=== PATIENT | male | born 1940 | race Caucasian/White ===

== ENCOUNTER 2021-04-30 10:55 | Inpatient (IN) | payer OTHER ==
[~2021-04-30] VITALS: Ht 170.2 cm; Wt 81.2 kg
[~2021-04-30 10:55] MED LIST: ALLOPURINOL 30300 M2 PO; ATENOLOL 25MG T25 MG PG; CHLORTHALIDONE25 MG PO; CIPROFLOXACIN500 M1 PO; ECOTRIN81 MG PO; FELODIPINE ER10 MG PO; FUROSEMIDE 20 M20 M1 PO; HYDROXYCHLOROQ200 M1 PO; LISINOPRIL10 MG PO; LISINOPRIL20 MG PO; LOVAZA1000 MG PO; MOBIC7.5 MG PO; OMEPRAZOLE 20 M20 MG PO; PLAQUENIL200 MG PO; TRAMADOL 50 MG50 MG PO; VERAPAMIL HCL180 M1 PO
[2021-04-30 10:58] VITALS: BP 202/83
[2021-04-30 12:14] LABS: ABSOLUTE NEUTROPHILS 6.5 thou/uL (1.4-8.2); EOSINOPHILS 6.5 % (0.0-3.0); HEMATOCRIT 41.6 % (42.0-52.0); HEMOGLOBIN 14.3 gm/dL (14.0-18.0); LYMPHOCYTES 19.4 % (24.0-44.0); MCH 29.2 pg (26.0-34.0); MCHC 34.3 g/dL (28.0-37.0); MCV 85.1 fL (80.0-100.0); MONOCYTES 5.7 % (1.0-8.0); PLATELET COUNT 215 thou/uL (150-400); POLYS 67.4 % (36.0-66.0); RBC 4.89 mil/uL (4.50-6.00); RDW 15.6 % (10.5-14.5); WBC 9.7 thou/uL (4.0-11.0)
[2021-04-30 12:23] LABS: ANION GAP 8 mmol/L (7-16); BUN 27 mg/dL (7-18); CALCIUM 8.8 mg/dL (8.5-10.1); CHLORIDE 102 mmol/L (98-107); CO2 27 mmol/L (21-32); CREATININE 1.6 mg/dL (0.7-1.3); GLUCOSE 152 mg/dL (74-106); POTASSIUM 3.9 mmol/L (3.5-5.1); SODIUM 137 mmol/L (136-145)
[2021-04-30 12:33] LABS: ALBUMIN 3.9 g/dL (3.4-5.0); SGOT 26 U/L (15-37); SGPT 28 U/L (30-65); TOTAL BILIRUBIN 0.6 mg/dL (0.2-1.0); TOTAL PROTEIN 7.1 g/dL (6.4-8.2); TROPONIN-I <0.06 ng/mL (<0.06)
[2021-04-30 15:23] VITALS: BP 137/61
[2021-04-30 15:38] VITALS: BP 136/57
[2021-04-30 15:55] VITALS: BP 149/72
[2021-04-30] MEDS ORDERED: MELOXICAM15 MG PO ×4 (16:43→16:48)
--- NOTE | 2021-04-30 18:16 | NUR ---
PT ADMITTED FROM ER FOR CHEST PAIN AND SOB, PT IS A&OX4, PT HAS MEDICATIONS AT ER, PT 'S CHEST PAIN AND SOB HAVE IMPROVED, PT 'S VS ARE STABLE, PT'S STAYS AT PT'S BEDSIDE NOW. PT'S ADMITTED ASSESSMENT HAS DONE.
--- NOTE | 2021-04-30 18:50 | EKG ---
[address] [address] ELECTROCARDIOGRAM REPORT Name: MARIA DEL ROSARIO ALBARRAN Room #: 352-P ADM IN M.R.#: [id number] Admission: 04/30/21 Attend Phys: Angel Demarco MD Discharge: Date of : 42 Report #: [id number] [facility] ED Test Date: 2021-04-30 Test Time: 11:57:40 Pat Name: MARIA DEL ROSARIO ALBARRAN Department: Room: [facility] Gender: M [employer]: RODNEY : 1940 Requested By: Yelitza Baker Order Number: [id number] MD: Kyle Rizo Measurements Intervals [place] Rate: 56 P: 35 NM: 166 QRS: -22 QRSD: 121 T: 26 QT: 451 QTc: 436 Interpretive Statements Sinus rhythm Atrial premature complex Nonspecific intraventricular conduction delay Compared to ECG 10/23/2008 11:21:44 Atrial premature complex(es) now present Intraventricular conduction delay now present T-wave abnormality no longer present Electronically Signed On 04-30-2021 18:50:41 CDT by Kyle Rizo [email or web address] <ELECTRONICALLY SIGNED> By: Kyle Rizo MD, [facility] 04/30/21 1850 1157 1157 Kyle Rizo MD, [facility] /EPI
[2021-04-30 21:03] VITALS: BP 198/95
--- NOTE | 2021-05-01 06:28 | NUR ---
PATIENT REMAIN A/OX4. DENIES ANY CHEST PAIN, DENIES SOA, PAIN. AFEBRILE. VSS. ON RA. DENIES NEEDS. WANTS TO GO HOME THIS AM.
[2021-05-01 07:32] VITALS: BP 197/94
[2021-05-01 11:05] VITALS: BP 197/80
--- NOTE | 2021-05-01 12:18 | NUR ---
ORDERS RECEIVED FOR PT EVAL AND TREAT. Pt HAS BEEN UP AD EDIS WHICH RN CONFIRMED. STILL HAS ELEVATED BP AND Pt REPORTED HE HAS A STRICT BP MED REGIMEN AT HOME THAT HE WORKED OUT WITH HIS DOCTOR OVER A LONG PERIOD OF TIME. WANTS TO GET HOME TO GET BACK ON THAT REGIMEN. DECLINING ACUTE PT NEEDS AT THIS TIME. ACUTE PT TO SIGN OFF. CONFIRMED THAT Pt HAS HAD NO DIFFICULTY W/ MOBILITY.
[2021-05-01] MEDS ORDERED: PREDNISONE 20 M20 M1 PO (13:41)
[2021-05-01] MEDS ORDERED: CLONIDINE HCL0.3 M3 PO (13:41)
[2021-05-01] MEDS ORDERED: ATENOLOL 25 MG25 M1 PO (13:41)
[2021-05-01 13:51] VITALS: BP 179/77
[2021-05-01 15:28] VITALS: BP 185/80
--- NOTE | 2021-05-01 16:48 | NUR ---
RN ASSUMED PT'S CARE AT 0700AM, PT IS A&OX4, PT'S CHEST PAIN AND SOB HAVE IMPROVED,RN RECEIVED ORDER TO DC PT TO HOME, RN HAS CALLED HOSPITAL DR TO REPORT PT'S BP STLL HIGH AT 179-189/70-90MMHG, AFTER PT HAS HIS SCHEDULE AND PRN BP MEDICATIONS, BUT PT DENIES CHEST PAIN AND SOB, HOSPITAL DR ASKS RN TO CALL CARDIOLOGY DR AND HOLD DC TO HOME NOW. WE ARE CONTINUING PT'S VS AND WAIT FOR DR TO CALL BACK.
--- NOTE | 2021-05-01 19:26 | NUR ---
RN RECEIVED ORDER FROM CARDIOLOGY DR , HOLD DC TODAY, INCREASE BP MEDICATIOND DOSE, DO STRESS TEST TOMORROW. PT AND PT'S UNDERSAND WELL, RN HAS REPORTED TO NEXT SHIFT TO KEEP EYE ON PT. RN HAS NOTIFIED HOSPITAL DR ABOUT HOLD DC TODAY.
[2021-05-01 19:35] VITALS: BP 165/63
[2021-05-01 23:55] VITALS: BP 155/60
[2021-05-02] VITALS (7 sets, daily range): BP systolic 152–179; BP diastolic 83–87
--- NOTE | 2021-05-02 04:28 | NUR ---
PT MAKING PROGRESS TOWARDS GOALS. ON ROOM AIR THROUGHOUT THE NIGHT. UP TO TOILET W/O ASSISTANCE. DENIED ANY KAREN OR CHEST PAIN OVERNIGHT. NPO FOR STRESS TEST THIS AM.
--- NOTE | 2021-05-02 08:20 | NUR ---
PER NM, PT IS TO HAVE LIGHT BREAKFAST, NO CAFFEINE. TEST WILL NOT BE UNTIL THIS AFTERNOON. NPO FOR LUNCH. OK FOR MEDS EXCEPT NITRO, METOPROLOL.
[2021-05-02 09:41] LABS: ANION GAP 8 mmol/L (7-16); BUN 32 mg/dL (7-18); CALCIUM 9.7 mg/dL (8.5-10.1); CHLORIDE 99 mmol/L (98-107); CHOLESTEROL 261 mg/dL (<200); CO2 31 mmol/L (21-32); CREATININE 1.4 mg/dL (0.7-1.3); GLUCOSE 117 mg/dL (74-106); HDL CHOLESTEROL 32 mg/dL (>40); LDL CHOLESTEROL 167 mg/dL (<100); POTASSIUM 4.1 mmol/L (3.5-5.1); SODIUM 138 mmol/L (136-145); TC:HDL 8.2 Ratio (Not establshd); TRIGLYCERIDE 313 mg/dL (<150); TROPONIN-I <0.06 ng/mL (<0.06); VLDL 63 mg/dL (<40)
--- NOTE | 2021-05-02 13:10 | 2DMMODE ---
[facility] [place] [address] 2 D/M-MODE ECHOCARDIOGRAM Name: DEIONMARIA DEL ROSARIO E Room #: 352-P ADM IN M.R.#: [id number] Admission: 04/30/21 Attend Phys: Angel Demarco MD Discharge: Date of : 42 Report #: [id number] THIS REPORT FOR: cc: Hugo Mayberry MD, Logan F. MD Santiago, Patrick MD [facility] ~ APPROVED REPORT Study performed: 05/02/2021 12:12:40 EXAM: Comprehensive 2D, Doppler, and color-flow Echocardiogram Patient Location: Bedside Room #: [facility] Status: routine BSA: 1.93 HR: 62 bpm BP: 179/83 mmHg Rhythm: NSR Other Information Study Quality: Good Indications Chest Pain Hypertension/HDD 2D Dimensions RVDd: 41.35 mm IVSd: 11.24 (7-11mm) LVOT Diam: 19.52 (18-24mm) LVDd: 49.74 mm PWd: 10.65 (7-11mm) Ascending Ao: 30.94 (22-36mm) LVDs: 34.38 (25-40mm) Left Atrium: 43.94 (27-40mm) Aortic Root: 36.56 mm IVC: 16.00 mm Volumes Left Atrial Volume (Systole) Single Plane 4CH: 54.41 mL Single Plane 2CH: 39.46 mL LA ESV Index: 26.00 mL/m2 Aortic Valve AoV Peak Ez.: 2.30 m/s AO Peak Gr.: 21.15 mmHg LVOT Max P.08 mmHg AO Mean Gr.: 11.35 mmHg LVOT Mean P.61 mmHg [facility] [address] [place] [address] 2 D/M-MODE ECHOCARDIOGRAM Name: MARIA DEL ROSARIO ALBARRAN Room #: 352-P [facility]#: [id number] Admission: 04/30/21 Attend Phys: Angel Demarco MD Discharge: Date of : 42 Report #: [id number] AO V2 Mean: 1.57 m/s LVOT Max V: 0.90 m/s AO V2 VTI: 53.77 cm LVOT Mean V: 0.58 m/s TRI (VTI): 1.32 cm2 LVOT V1 VTI: 23.72 cm TRI Vmax: 1.18 cm2 SV (LVOT): 70.98 mL Mitral Valve E/A Ratio: 1.3 MV Decel. Time: 279.91 ms MV E Max Ez.: 0.97 m/s MV A Ez.: 0.77 m/s MV PHT: 81.17 ms IVRT: 110.73 ms Pulmonary Valve PV Peak Ez.: 0.95 m/s PV Peak Gr.: 3.61 mmHg Pulmonary Vein P Vein S: 0.63 m/s P Vein A: 0.24 m/s P Vein D: 0.30 m/s P Vein A Dur.: 106.1 msec P Vein S/D Ratio: 2.10 Left Ventricle The left ventricle is normal size. There is normal LV segmental wall motion. There is normal left ventricular wall thickness. Left ventricular systolic function is normal. The left ventricular ejection fraction is within the normal range. LVEF is 60-65%. Grade II - pseudonormal filling dynamics. Right Ventricle The right ventricle is normal size. The right ventricular systolic function is normal. Atria The left atrium size is normal. The right atrium size is normal. Aortic Valve The aortic valve is normal in structure. Aortic valve is calcified. No aortic regurgitation is present. Mild aortic stenosis. Mitral Valve The mitral valve is normal in structure. There is no mitral valve regurgitation noted. No evidence of mitral valve stenosis. Tricuspid Valve [facility] [address] [place] [address] 2 D/M-MODE ECHOCARDIOGRAM Name: MARIA DEL ROSARIO ALBARRAN Room #: 352-P [facility].#: [id number] Admission: 04/30/21 Attend Phys: Angel Demarco MD Discharge: Date of : 42 Report #: [id number] The tricuspid valve is normal in structure. There is no tricuspid valve regurgitation noted. Pulmonic Valve The pulmonary valve is normal in structure. There is no pulmonic valvular regurgitation. Great Vessels The aortic root is normal in size. IVC is normal in size and collapses >50% with inspiration. Pericardium There is no pericardial effusion. <Conclusion> Normal left ventricular size/wall thickness Ejection fraction 60-65% Normal right ventricular size/function Mild aortic valve stenosis, mean gradient of 11 mmHg Normal mitral valve structure and function No tricuspid valve insufficiency No pericardial effusion Normal aortic root size. <ELECTRONICALLY SIGNED> By: Kyle Rizo MD, FACC 05/02/21 1310 131 09 Kyle Rizo MD, FACC /INF
--- NOTE | 2021-05-02 16:32 | NUR ---
SW received consult for discharge planning. Spoke with nursing and attending physician. Pt was admitted from home due to chest pain. Pt had stress test today, which was negative. Pt discharged home earlier this afternoon. No discharge needs identified. SW is available to assist should needs arise.
== END 2021-05-02 16:15 | disposition home or self-care (01) | DRG 305 ==
LOC: ER 10:55 → EROBS 14:16 → 3W 14:16
PROVIDERS: Emergency Medicine; Nurse Practitioner; ADMIT Internal Medicine; ATTEND Internal Medicine
DX: I16.0 Hypertensive urgency (principal); I20.8 Other forms of angina pectoris; E78.5 Hyperlipidemia, unspecified; I10 Essential (primary) hypertension; S61.451A Open bite of right hand, initial encounter; W57.XXXA Bitten or stung by nonvenomous insect and other nonvenomous arthropods, initial encounter; M10.9 Gout, unspecified; M06.9 Rheumatoid arthritis, unspecified; Z90.49 Acquired absence of other specified parts of digestive tract; Z79.82 Long term (current) use of aspirin; Z79.899 Other long term (current) drug therapy; Z88.8 Allergy status to other drugs, medicaments and biological substances; Y93.89 Activity, other specified; Y92.89 Other specified places as the place of occurrence of the external cause; Y99.8 Other external cause status
CPT/HCPCS: 10879

== ENCOUNTER → 2021-05-10 | Outpatient (CLI) | payer OTHER ==
[~2021-05-10] MED LIST changes: +ATENOLOL 25 MG25 M1 PO; +CLONIDINE HCL0.3 M3 PO; +MELOXICAM15 MG PO; +PREDNISONE 20 M20 M1 PO
== END ==
LOC: SJCVC 13:43
PROVIDERS: ATTEND Internal Medicine
DX: I10 Essential (primary) hypertension (principal); R07.9 Chest pain, unspecified; I35.0 Nonrheumatic aortic (valve) stenosis; Z88.8 Allergy status to other drugs, medicaments and biological substances; Z79.82 Long term (current) use of aspirin; Z79.899 Other long term (current) drug therapy